=== PATIENT | female | born 1950 | race Caucasian/White ===

== ENCOUNTER 2016-07-10 05:31 | Day surgery (SDC) | payer OTHER ==
[2016-07-04 10:40] LABS: HEMATOCRIT 41.3 % (36.0-48.0); HEMOGLOBIN 13.9 g/dL (12.0-16.0)
[2016-07-04 10:46] LABS: BUN (BLOOD UREA NITROGEN) 19 MG/DL (6-23); CALCIUM, SERUM 9.1 MG/DL (8.5-10.4); CHLORIDE, SERUM 108 MMOL/L (96-112); CO2 (CARBON DIOXIDE) 27 MMOL/L (24-34); CREATININE 0.96 MG/DL (0.55-1.02); GFR AFRICAN AMERICAN 71 ML/MIN (>=60); GFR NON AFRICAN AMERICAN 62 ML/MIN (>=60); GLUCOSE, SERUM 165 MG/DL (60-99); POTASSIUM, SERUM 4.1 MMOL/L (3.5-5.3); SODIUM, SERUM 143 MMOL/L (135-148)
[~2016-07-10 05:31] MED LIST: ASAB PO; BIST PO; C5 PO; CALTRA600D PO; COREG25 PO; CRESTOR20 MG PO; FISH-EPA1000 MG PO; HYZAAR 50/12.51 TAB PO; IMDUR30 PO; LEVOTHYROXIN100 MCG PO; LEVOTHYROXIN125 MCG PO; LIPITOR40 PO; LOFIBRA134 MG PO; LOVENOX1C SC; MOBIC15 MG PO; MULTIVITAMI1 PO; OS500+D PO; PRILO PO; PRILOSEC40 MG PO; TRAZODONE150 MG PO; VITC500 PO; XARELTO20 MG PO; ZESTORETIC PO; ZETIA PO
== END 2016-07-10 10:12 | disposition home or self-care (01) ==
LOC: SDC 05:31
PROVIDERS: Ophthalmology
PROC: 08RK3JZ Replacement of Left Lens with Synthetic Substitute, Percutaneous Approach (ICD-10-PCS; principal; 2016-07-10 08:00)
DX: H26.9 Unspecified cataract (principal); I10 Essential (primary) hypertension; I25.2 Old myocardial infarction; E78.5 Hyperlipidemia, unspecified; E03.9 Hypothyroidism, unspecified; E11.9 Type 2 diabetes mellitus without complications; E66.9 Obesity, unspecified; K21.9 Gastro-esophageal reflux disease without esophagitis; Z86.711 Personal history of pulmonary embolism; Z98.1 Arthrodesis status; Z88.5 Allergy status to narcotic agent; Z91.040 Latex allergy status; Z96.652 Presence of left artificial knee joint; Z90.710 Acquired absence of both cervix and uterus; Z90.722 Acquired absence of ovaries, bilateral; Z87.442 Personal history of urinary calculi; Z85.850 Personal history of malignant neoplasm of thyroid; Z98.890 Other specified postprocedural states; Z79.899 Other long term (current) drug therapy
CPT/HCPCS: 80048; 82962; 85014; 85018; 93005; J2250; J2405; J3010

== ENCOUNTER 2016-07-31 05:15 | Day surgery (SDC) | payer OTHER ==
[2016-07-31 06:50] LABS: HEMATOCRIT 44.5 % (36.0-48.0); HEMOGLOBIN 15.7 g/dL (12.0-16.0)
[2016-07-31 07:03] LABS: BUN (BLOOD UREA NITROGEN) 17 MG/DL (6-23); CHLORIDE, SERUM 105 MMOL/L (96-112); CO2 (CARBON DIOXIDE) 30 MMOL/L (24-34); CREATININE 1.19 MG/DL (0.55-1.02); GFR AFRICAN AMERICAN 55 ML/MIN (>=60); GFR NON AFRICAN AMERICAN 48 ML/MIN (>=60); GLUCOSE, SERUM 135 MG/DL (60-99); POTASSIUM, SERUM 4.4 MMOL/L (3.5-5.3); SODIUM, SERUM 140 MMOL/L (135-148)
== END 2016-07-31 09:34 | disposition home or self-care (01) ==
LOC: SDC 05:15
PROVIDERS: Ophthalmology
PROC: 08RJ3JZ Replacement of Right Lens with Synthetic Substitute, Percutaneous Approach (ICD-10-PCS; principal; 2016-07-31 07:15)
DX: H25.13 Age-related nuclear cataract, bilateral (principal); I25.2 Old myocardial infarction; E11.9 Type 2 diabetes mellitus without complications; Z91.040 Latex allergy status; Z90.710 Acquired absence of both cervix and uterus; Z90.49 Acquired absence of other specified parts of digestive tract; Z86.711 Personal history of pulmonary embolism; Z88.5 Allergy status to narcotic agent; Z98.890 Other specified postprocedural states
CPT/HCPCS: 80048; 85014; 85018; J2250; J2405; J3010

== ENCOUNTER 2016-09-12 09:15 | Day surgery (SDC) | payer OTHER ==
--- NOTE | ~2016-09-12 | EGD ---
EGD REPORT [facility] [address] [id number] NAME: TATYANA MELLO : [birth year] [place] [facility] [place] [id number] AGE: 65 ADM/REG DATE : 09/12/16 MR#: [id number] REPORT SERV DATE: 09/12/16 DICTATED BY: BRYANT WHITE DATE: 09/12/16 REPORT STATUS : Draft [facility]ANS[facility]IBED BY: [facility] DATE: 09/12/16 [facility] Patient Name: Tatyana Mello Date of : 1950 Attending MD: BRYANT WHITE MD Procedure Date No Time: 09/12/2016 Procedure: Upper GI endoscopy Indications: Dysphagia, Gastro-esophageal reflux disease Referring MD: GIBRAN RENNER Medicines: Propofol per Anesthesia Complications: No immediate complications. Procedure: Pre-Anesthesia Assessment: - ASA Grade Assessment: III - A patient with severe systemic disease. After obtaining informed consent, the endoscope was passed under direct vision. Throughout the procedure, the patient's blood pressure, pulse, and oxygen saturations were monitored continuously. The GIF [id number] was introduced through the mouth, and advanced to the third part of duodenum. The upper GI endoscopy was accomplished without difficulty. The patient tolerated the procedure well. Findings: Non-severe esophagitis with no bleeding was found in the entire esophagus. A benign-appearing, intrinsic mild stenosis was found in the upper third of the esophagus and was traversed. A guidewire was placed and the scope was withdrawn. Dilation was performed with a Savary dilator with mild resistance at 60 Fr. The esophagus looked satisfactory post dilation A small hiatus hernia was present. Seen on retroflexion, done prior to dilation Diffuse mild inflammation characterized by congestion (edema) and erythema was found in the entire examined stomach. Biopsies were taken with a cold forceps for Helicobacter pylori testing. A few small sessile polyps with no stigmata of recent bleeding were found in the gastric fundus and in the gastric body. The examined duodenum was normal. Impression: - Non-severe esophagitis. - Benign-appearing esophageal stricture. Dilated. - Hiatus hernia. - Gastritis. Biopsied. - A few gastric polyps. - Normal examined duodenum. EGD REPORT [address] [address] NAME: TATYANA MELLO : [birth year] [place] [facility] [place]#: [id number] AGE: 65 ADM/REG DATE : 09/12/16 MR#: [id number] REPORT SERV DATE: 09/12/16 DICTATED BY: BRYANT WHITE DATE: 09/12/16 REPORT STATUS : Draft TRANSCRIBED BY: [employer] DATE: 09/12/16 Recommendation: - Patient has a contact number available for emergencies. The signs and symptoms of potential delayed complications were discussed with the patient. Return to normal activities tomorrow. Written discharge instructions were provided to the patient. - diet is clear liquid today, full liquid tomorrow, soft mushy food the next day, and resume usual diet the day after that. - Continue present medications. - Await pathology results. - Return to my office as previously scheduled. - Discharge patient to home. Procedure Code(s): --- Professional --- 14849, Esophagogastroduodenoscopy, flexible, transoral; with insertion of guide wire followed by passage of dilator(s) through esophagus over guide wire 15535, Esophagogastroduodenoscopy, flexible, transoral; with biopsy, single or multiple Diagnosis Code(s): --- Professional --- K20.9, Esophagitis, unspecified K22.2, Esophageal obstruction K44.9, Diaphragmatic hernia without obstruction or gangrene K29.70, Gastritis, unspecified, without bleeding K31.7, Polyp of stomach and duodenum R13.10, Dysphagia, unspecified K21.9, Gastro-esophageal reflux disease without esophagitis CPT copyright 2013 [employer]. All rights reserved. The codes documented in this report are preliminary and upon pan devulcanizer review may be revised to meet current compliance requirements. Bryant White MD BRYANT WHITE MD 09/12/2016 11:51 AM This report has been signed electronically. Number of Addenda: 0 Note Initiated On: 09/12/2016 10:57 AM Scope Withdrawal Time 0 hours 0 minutes 0 seconds EGD REPORT [place] [address] [id number] NAME: TATYANA MELLO Raad : [birth year] [place] [facility] [place]#: [id number] AGE: 65 ADM/REG DATE : 09/12/16 MR#: [id number] REPORT SERV DATE: 09/12/16 DICTATED BY: BRYANT WHITE DATE: 09/12/16 REPORT STATUS : Draft [facility]IBED [facility]: [facility] DATE: 09/12/16 [facility] [place] [address]
== END 2016-09-12 23:59 | disposition home or self-care (01) ==
LOC: DMU 09:15
PROVIDERS: Internal Medicine Gastroenterology
PROC: 0DB68ZX Excision of Stomach, Via Natural or Artificial Opening Endoscopic, Diagnostic (ICD-10-PCS; principal; 2016-09-12 10:00)
DX: K29.70 Gastritis, unspecified, without bleeding (principal); K22.2 Esophageal obstruction; K44.9 Diaphragmatic hernia without obstruction or gangrene; K31.7 Polyp of stomach and duodenum; K21.9 Gastro-esophageal reflux disease without esophagitis
CPT/HCPCS: 82962; 88305